=== PATIENT | male | born 1965 | race Caucasian/White ===

== ENCOUNTER 2016-09-12 22:30 | Emergency (ER) | payer OTHER ==
[~2016-09-12] VITALS: Ht 188 cm; Wt 91.6 kg
[~2016-09-12 22:30] MED LIST: VALS80TA3 PO
[2016-09-12 23:25] LABS: PATH.CAST-FLAG NOT PRESENT; SPERM-FLAG NOT PRESENT; SRC-FLAG NOT PRESENT; XTAL-FLAG NOT PRESENT; YLC-FLAG NOT PRESENT
[2016-09-12] MEDS ORDERED: SODIUM CHLORIDE FLUSH 10ML SYR IVF ONE (23:30)
[2016-09-12] MEDS ORDERED: ONDANSETRON 2MG/ML, 2ML ONE (23:37)
[2016-09-12] MEDS ORDERED: HYDROmorphone 1 MG/ML, 1ML ONE (23:37)
[2016-09-12] MEDS: HYDROmorphone 1 MG/ML, 1ML IVPush PRN (23:38)
[2016-09-13] MEDS ORDERED: ONDANSETRON 2MG/ML, 2ML IVPush ONE
[2016-09-13] MEDS ORDERED: HYDROmorphone 1 MG/ML, 1ML ONE (00:56)
[2016-09-13] MEDS ORDERED: KETOROLAC 30 MG/1 ML ONE (00:59)
[2016-09-13] MEDS ORDERED: KETOROLAC 30 MG/1 ML IVPush ONE (01:00)
[2016-09-13] MEDS: HYDROmorphone 1 MG/ML, 1ML IVPush PRN (01:01)
[2016-09-13 02:52] VITALS: BP 124/74
== END 2016-09-13 02:56 | disposition home or self-care (01) ==
LOC: ED 23:59
DX: N13.2 Hydronephrosis with renal and ureteral calculous obstruction (principal); R31.9 Hematuria, unspecified
CPT/HCPCS: 74176; 81001; 96374; 96375; 96376; 99285; J1170; J1885; J2405

== ENCOUNTER → 2017-08-25 | Outpatient (CLI) | payer OTHER | END | disposition home or self-care (01) | LOC: CFH 08:16 | PROVIDERS: ATTEND Internal Medicine Cardiovascular Disease | DX: I10 Essential (primary) hypertension (principal); I34.0 Nonrheumatic mitral (valve) insufficiency; R94.31 Abnormal electrocardiogram [ECG] [EKG] | CPT/HCPCS: 93306 ==

== ENCOUNTER → 2017-08-30 | Outpatient (CLI) | payer OTHER ==
[~2017-08-30] MED LIST changes: +REGADENOSON 0.4 MG/5 ML SYRINGE ONE
== END | disposition home or self-care (01) ==
LOC: CFH 08:06
PROVIDERS: ATTEND Internal Medicine Cardiovascular Disease
DX: I10 Essential (primary) hypertension (principal); I44.7 Left bundle-branch block, unspecified; I21.09 ST elevation (STEMI) myocardial infarction involving other coronary artery of anterior wall
CPT/HCPCS: 78452; 93017; A9502; J2785

== ENCOUNTER 2017-09-22 09:54 | Day surgery (SDC) | payer OTHER ==
[~2017-09-22] VITALS: Ht 185.4 cm; Wt 98.0 kg
[~2017-09-22 09:54] MED LIST changes: -REGADENOSON 0.4 MG/5 ML SYRINGE ONE
[2017-09-22] MEDS ORDERED: SODIUM CHLORIDE 0.9% 1,000 ML IV ONE (10:20)
[2017-09-22] MEDS ORDERED: ASPIRIN 325 MG TABLET EC PO ONE (10:30)
[2017-09-22 10:31] VITALS: BP 140/85
[2017-09-22] MEDS ORDERED: ASPIRIN 325 MG TABLET EC ONE (10:54)
[2017-09-22 10:56] LABS: BASOPHILS # (AUTO) 0.02 x10^3/uL (0-0.1); BASOPHILS % (AUTO) 0 % (0-1); EOSINOPHILS # (AUTO) 0.33 x10^3/uL (0-0.4); EOSINOPHILS % (AUTO) 6 % (1-7); LYMPHOCYTES # (AUTO) 1.15 x10^3/uL (1-3.4); LYMPHOCYTES % (AUTO) 21 % (22-44); MD NO; MEAN CORPUSCULAR HEMOGLOBIN 29.8 pg (27.5-34.5); MEAN CORPUSCULAR HGB CONC 34.3 g/dL (33.2-36.2); MEAN CORPUSCULAR VOLUME 86.9 fL (81-97); MEAN PLATELET VOLUME 7.4 fL (7.4-10.4); MONOCYTES # (AUTO) 0.49 x10^3/uL (0.2-0.8); MONOCYTES % (AUTO) 9 % (2-9); NEUTROPHILS # (AUTO) 3.46 x10^3/uL (1.8-6.8); NEUTROPHILS % (AUTO) 64 % (42-75); PLATELET COUNT 277 x10^3/uL (130-400); RED BLOOD COUNT 5.37 x10^6/uL (4.38-5.82); RED CELL DISTRIBUTION WIDTH 13.4 % (9.4-14.8)
[2017-09-22 11:06] LABS: ANION GAP 8 mmol/L (5-15); CALCIUM 8.4 mg/dL (8.5-10.1); CHLORIDE 108 mmol/L (98-107); CREATININE 0.98 mg/dL (0.7-1.3)
[2017-09-22] MEDS ORDERED: TICAGRELOR 90 MG TABLET ONE (12:54)
[2017-09-22] MEDS ORDERED: LIDOCAINE-MPF 2%, 2ML ONE (12:54)
[2017-09-22] MEDS ORDERED: HEPARIN 1,000 UNITS/ML, 10ML ONE (12:54)
[2017-09-22] MEDS ORDERED: BIVALIRUDIN 250 MG ONE (12:54)
[2017-09-22] MEDS ORDERED: VERAPAMIL 2.5 MG/ML, 2ML ONE (12:54)
[2017-09-22] MEDS ORDERED: FENTANYL PF 100 MCG/2ML ONE (12:54)
[2017-09-22] MEDS ORDERED: MIDAZOLAM 1 MG/ML, 5ML ONE (12:54)
[2017-09-22] MEDS ORDERED: SODIUM CHLORIDE 0.9% 1,000 ML IV SCH (13:28)
[2017-09-22] MEDS ORDERED: ACETAMINOPHEN 325 MG TABLET ONE (14:51)
== END 2017-09-22 15:58 ==
LOC: CACL 09:54
PROVIDERS: ATTEND Internal Medicine Cardiovascular Disease
DX: I25.10 Atherosclerotic heart disease of native coronary artery without angina pectoris (principal); I10 Essential (primary) hypertension; I44.7 Left bundle-branch block, unspecified; I34.0 Nonrheumatic mitral (valve) insufficiency
CPT/HCPCS: 36415; 80048; 85025; 93458; 99156; C1769; C1894; J1644; J2250; J3010; J3490; Q9967; J0583

== ENCOUNTER 2019-09-29 19:02 | Emergency (ER) | payer OTHER ==
[~2019-09-29] VITALS: Ht 188 cm; Wt 103.8 kg
[2019-09-29] MEDS ORDERED: MECLIZINE CHEWABLE 25 MG TAB PO PRN (19:46)
[2019-09-29] MEDS ORDERED: ONDANSETRON ODT 4 MG ONE (19:52)
[2019-09-29] MEDS ORDERED: MECLIZINE CHEWABLE 25 MG TAB ONE (19:52)
[2019-09-29] MEDS ORDERED: ONDANSETRON ODT 4 MG PO ONE (20:00)
[2019-09-29] MEDS ORDERED: MECLIZINE 12.5 MG TABLET PO PRN (20:00)
[2019-09-29 20:16] LABS: BASOPHILS # (AUTO) 0.01 x10^3/uL (0-0.1); BASOPHILS % (AUTO) 0 % (0-1); EOSINOPHILS # (AUTO) 0.08 x10^3/uL (0-0.4); EOSINOPHILS % (AUTO) 1 % (1-7); LYMPHOCYTES # (AUTO) 0.77 x10^3/uL (1-3.4); LYMPHOCYTES % (AUTO) 7 % (22-44); MD NO; MEAN CORPUSCULAR HEMOGLOBIN 29.1 pg (27.5-34.5); MEAN CORPUSCULAR HGB CONC 33.2 g/dL (33.2-36.2); MEAN CORPUSCULAR VOLUME 87.7 fL (81-97); MEAN PLATELET VOLUME 7.7 fL (7.4-10.4); MONOCYTES # (AUTO) 0.29 x10^3/uL (0.2-0.8); MONOCYTES % (AUTO) 2 % (2-9); NEUTROPHILS # (AUTO) 10.58 x10^3/uL (1.8-6.8); NEUTROPHILS % (AUTO) 90 % (42-75); PLATELET COUNT 303 x10^3/uL (130-400); RED BLOOD COUNT 5.09 x10^6/uL (4.38-5.82); RED CELL DISTRIBUTION WIDTH 13.1 % (9.4-14.8)
[2019-09-29 20:18] LABS: ALBUMIN 3.8 g/dL (3.4-5.0); ANION GAP 5 mmol/L (5-15); CALCIUM 8.7 mg/dL (8.5-10.1); CHLORIDE 110 mmol/L (98-107); CREATININE 1.04 mg/dL (0.7-1.3)
[2019-09-29 21:35] VITALS: BP 132/74
== END 2019-09-29 21:38 | disposition home or self-care (01) ==
LOC: ED 21:34
DX: H81.11 Benign paroxysmal vertigo, right ear (principal); R11.2 Nausea with vomiting, unspecified; R51 Headache; R94.31 Abnormal electrocardiogram [ECG] [EKG]
CPT/HCPCS: 36415; 70450; 80048; 82040; 85025; 93005; 99285; Q0162